=== PATIENT | female | born 1990 | race Two or more races ===

== ENCOUNTER 2024-06-19 16:49 | Emergency (ER) | payer MEDICAID ==
[~2024-06-19] VITALS: Ht 162.6 cm; Wt 63.5 kg
[2024-06-19 17:08] VITALS: TEMP 98.3
[2024-06-19 18:12] LABS: BASOPHILS % (AUTO) 0.5 % (0.0-2.0); EOSINOPHILS % (AUTO) 0.2 % (1.0-6.0); HEMATOCRIT 38.3 % (36-46); HEMOGLOBIN 12.8 g/dL (12.0-16.0); LYMPHOCYTES # (AUTO) 1.2 K/uL (1.0-4.8); LYMPHOCYTES % (AUTO) 13.3 % (22.0-44.0); MEAN CORPUSCULAR HGB CONC 33.4 G/dL (31.0-37.0); MEAN CORPUSCULAR VOLUME 90 fL (80-100); MONOCYTES # (AUTO) 0.7 K/uL (0.1-1.0); MONOCYTES % (AUTO) 7.5 % (2.0-9.0); NEUTROPHILS # (AUTO) 7.2 K/uL (1.8-7.7); NEUTROPHILS % (AUTO) 78.5 % (40.0-70.0); PLATELET COUNT (AUTO) 227 K/uL (150-450); RED BLOOD CELL COUNT(AUTO) 4.27 MIL/uL (4.00-5.20); RED CELL DISTRIBUTION WIDTH 13.1 % (11.5-14.5); WHITE BLOOD COUNT (AUTO) 9.2 K/uL (4.5-11.0)
[2024-06-19] MEDS: KETOROLAC TROMETHAMINE 30 MG/ML VIAL IVP ONE (18:14)
[2024-06-19 18:19] LABS: ANION GAP 12 mmol/L (8-16); CALCIUM, TOTAL 8.9 mg/dL (8.8-10.5); CARBON DIOXIDE 24 mmol/L (22-29); CHLORIDE 105 mmol/L (98-107); CREATININE 0.68 mg/dL (0.60-1.30); GLOMERULAR FILTR. RATE CALC > 60 mL/min (>60); GLUCOSE,RANDOM 78 mg/dL (70-110); POTASSIUM 3.2 mmol/L (3.5-5.1); SODIUM SERUM 141 mmol/L (136-145); UREA NITROGEN, BLOOD 7 mg/dL (7-18)
[2024-06-19 19:10] VITALS: BP 114/76; PULSE 80; RESP 18; O2SAT 99
[2024-06-19] MEDS: METHOCARBAMOL 100 MG/ML 10 ML VIAL IVP ONE (19:57)
[2024-06-19] MEDS: LORazepam 2 MG/ML VIAL IVP ONE (19:57)
[2024-06-19] MEDS: MORPHINE SULFATE 2 MG/ML SYRINGE IVP ONE (19:57)
[2024-06-19] MEDS ORDERED: METH-659 PO (22:47)
[2024-06-19] MEDS ORDERED: IBUP-1554 PO (22:47)
[2024-06-19] MEDS: CYCLOBENZAPRINE HCL 10 MG TABLET PO ONE (22:47)
[2024-06-19] MEDS ORDERED: HYDR-4072 PO (22:47)
[2024-06-19] MEDS: HYDROCODONE/ACETAMINOPHEN 10-325 MG TABLET PO ONE (22:47)
== END 2024-06-19 23:00 | disposition home or self-care (01) ==
LOC: EMS 16:49
DX: S39.012A Strain of muscle, fascia and tendon of lower back, initial encounter (principal); V09.9XXA Pedestrian injured in unspecified transport accident, initial encounter; Y93.89 Activity, other specified; Y92.89 Other specified places as the place of occurrence of the external cause; Y99.8 Other external cause status
CPT/HCPCS: 99284; 96374; 96375; 80048; 84703; 85025; 36415; 72040; 72070; 72100; 72170; 72220; J1885; J2060; J2270; J2800

== ENCOUNTER 2024-06-22 19:08 | Emergency (ER) | payer MEDICAID ==
[~2024-06-22] VITALS: Ht 162.6 cm; Wt 65.9 kg
[~2024-06-22 19:08] MED LIST: HYDR-4072 PO; IBUP-1554 PO; METH-659 PO
[2024-06-22] MEDS ORDERED: METH4TAB3 PO (22:49)
[2024-06-22] MEDS: DEXAMETHASONE SOD PHOS 4 MG/ML 5 ML VIAL IM ONE (22:57)
[2024-06-22] MEDS: KETOROLAC TROMETHAMINE 30 MG/ML VIAL IM ONE (22:57)
[2024-06-22 23:09] VITALS: BP 132/71; PULSE 75; RESP 18; TEMP 97.3; O2SAT 100
== END 2024-06-22 23:24 | disposition home or self-care (01) ==
LOC: EMS 19:08
DX: S30.0XXA Contusion of lower back and pelvis, initial encounter (principal); M53.3 Sacrococcygeal disorders, not elsewhere classified; X58.XXXA Exposure to other specified factors, initial encounter; Y93.89 Activity, other specified; Y92.89 Other specified places as the place of occurrence of the external cause; Y99.8 Other external cause status
CPT/HCPCS: 99284; 96372; J1100; J1885